=== PATIENT | female | born 1965 | race Hispanic/Latino ===

== ENCOUNTER → 2016-03-19 | Outpatient (CLI) | payer BC ==
--- NOTE | 2016-03-19 10:42 | REP ---
PELVIC ULTRASOUND: HISTORY: Ovarian cyst. Right lower quadrant mass. Comparison study December 24, 2015 showed a 2.2 cm right ovarian cyst and a 1.3 cm posterior pedunculated subserosal fibroid. FINDINGS: Transabdominal and transvaginal scanning are performed. Uterine dimensions are 8.1 x 4.4 x 6.0 cm. These dimensions are similar to the prior study. Endometrial echo is 0.9 cm thick and centrally placed today. There is a 0.9 x 0.7 x 1.0 cm polypoid area in the endometrium which may be an endometrial polyp. Uterine myometrium is somewhat heterogeneous. Left posterior pedunculated fibroid is again seen 1.5 cm in greatest diameter. There are nabothian cysts in the cervix. Normal ovaries are seen today. Right ovary dimensions of 3.1 x 1.2 x 1.9 cm. The left ovary measures 2.8 x 1.2 x 2.2 cm. Doppler flow is normal in both ovaries. Resistive indices are 0.67 and 0.42 on the right and left respectively. IMPRESSION: No ovarian cyst or mass is seen. Possible endometrial polyp. Small uterine fibroid. Signed by Corbin Cardona MD 03/19/2016 02:53 P
== END ==
LOC: M RAD 08:16
PROVIDERS: ATTEND Family Medicine
DX: D25.9 Leiomyoma of uterus, unspecified (principal); R19.01 Right upper quadrant abdominal swelling, mass and lump; N83.299 Other ovarian cyst, unspecified side

== ENCOUNTER → 2016-04-14 | Outpatient (CLI) | payer BC ==
[~2016-04-14] VITALS: Ht 165.1 cm; Wt 63.5 kg
[~2016-04-14] MED LIST: ACET500C PO; EVEN1000 PO; LIDOCAINE 2% INJ 100 MG/5 ML SDV (FOR ANES.) As Ordered ONE; NS 1,000 ML IV SCH; PROPOFOL 200 MG/20 ML VIAL As Ordered ONE; TYLE650T35 PO; VITA EX; VITA30004 PO; [UNRECOGNIZED DRUG - CODE] PO
--- NOTE | 2016-04-14 13:22 | ROOR ---
Patient Name: Minerva Nolasco Procedure Date: 04/14/2016 1:03 PM Date of : 1965 Age: 50 Room: [facility] Gender: Female Note Status: Finalized Procedure: Colonoscopy to Cecum Indications: Colon cancer screening in patient at increased risk: Colorectal cancer in father, Incidental - Abdominal pain in the right lower quadrant Providers: David Mondragon MD Referring MD: LUPE MORRIS MD Requesting Provider: Medicines: Monitored Anesthesia Care Complications: No immediate complications. Procedure: Pre-Anesthesia Assessment: - The heart rate, respiratory rate, oxygen saturations, blood pressure, adequacy of pulmonary ventilation, and response to care were monitored throughout the procedure. The Colonoscope was introduced through the anus and advanced to the cecum, identified by appendiceal orifice and ileocecal valve. The colonoscopy was performed without difficulty. The patient tolerated the procedure well. The quality of the bowel preparation was excellent. Findings: The perianal and digital rectal examinations were normal. Non-bleeding internal hemorrhoids were found during retroflexion. The hemorrhoids were small and Grade I (internal hemorrhoids that do not prolapse). No other significant abnormalities were identified in a careful examination of the remainder of the colon. The exam was otherwise without abnormality on direct and retroflexion views. Impression: - Non-bleeding internal hemorrhoids. - The examination was otherwise normal on direct and retroflexion views. - No specimens collected. - The exam was otherwise normal to the cecum. Recommendation: - Patient has a contact number available for emergencies. The signs and symptoms of potential delayed complications were discussed with the patient. Return to normal activities tomorrow. Written discharge instructions were provided to the patient. - High fiber diet. - Discharge patient to home. - Continue present medications. - Repeat colonoscopy in 5 years for screening purposes. - Return to referring physician. - The findings and recommendations were discussed with the patient's family. David Mondragon MD David Mondragon MD 04/14/2016 1:21:30 PM This report has been signed electronically. Number of Addenda: 0 Note Initiated On: 04/14/2016 1:03 PM Estimated Blood Loss: Estimated blood loss: none.
[2016-04-14 13:45] VITALS: BP 115/75
== END | disposition home or self-care (01) ==
LOC: M OPP 11:30
PROVIDERS: ATTEND Internal Medicine Gastroenterology
DX: Z12.11 Encounter for screening for malignant neoplasm of colon (principal); K64.0 First degree hemorrhoids; Z80.0 Family history of malignant neoplasm of digestive organs
CPT/HCPCS: 99156; G0105

== ENCOUNTER 2016-09-07 14:39 | Emergency (ER) | payer BC ==
[~2016-09-07] VITALS: Ht 167.6 cm; Wt 69.2 kg
[~2016-09-07 14:39] MED LIST changes: -LIDOCAINE 2% INJ 100 MG/5 ML SDV (FOR ANES.) As Ordered ONE; -NS 1,000 ML IV SCH; -PROPOFOL 200 MG/20 ML VIAL As Ordered ONE
[2016-09-07] MEDS ORDERED: NITRO10CA PO (16:45)
[2016-09-07] MEDS ORDERED: PYRI1TAB5 PO (16:49)
[2016-09-07 16:56] VITALS: BP 115/68
== END 2016-09-07 17:01 | disposition home or self-care (01) ==
LOC: M ED 14:39
DX: N30.00 Acute cystitis without hematuria (principal); Z79.899 Other long term (current) drug therapy

== ENCOUNTER → 2017-10-29 | Outpatient (CLI) | payer BC ==
[~2017-10-29] MED LIST changes: -ACET500C PO; -EVEN1000 PO; +GASTROGRAFIN SOLUTION 30ML (Q9963) As Ordered; +ISOVUE-370 76% 100ML VIAL (Q9967) As Ordered; -TYLE650T35 PO; -VITA EX; -VITA30004 PO; -[UNRECOGNIZED DRUG - CODE] PO
== END ==
LOC: M RAD 11:13
DX: R10.11 Right upper quadrant pain (principal); R10.13 Epigastric pain
CPT/HCPCS: Q9963

== ENCOUNTER → 2018-01-24 | Outpatient (REF) | payer BC ==
[2018-01-28 14:15] LABS: HPV HYBRID CAPTURE II Negative (Negative)
== END ==
LOC: M LAB REF 09:04
DX: Z12.4 Encounter for screening for malignant neoplasm of cervix (principal)
CPT/HCPCS: 88142

== ENCOUNTER → 2018-06-10 | Outpatient (CLI) | payer BC ==
[~2018-06-10] MED LIST changes: +ACET500C PO; +EVEN1000 PO; -GASTROGRAFIN SOLUTION 30ML (Q9963) As Ordered; -ISOVUE-370 76% 100ML VIAL (Q9967) As Ordered; +NITR-67 PO; +PYRI1TAB5 PO; +TYLE650T35 PO; +VITA EX; +VITA30004 PO; +[UNRECOGNIZED DRUG - CODE] PO
--- NOTE | 2018-06-10 15:19 | REP ---
Focused bilateral breast sonography: History: Bilateral augmentation implants. Check implant status. Findings: Heterogeneous fibroglandular background echotexture is seen. No suspicious breast tissue finding is seen on either side. The patient has bilateral silicone implants. Visualized implant margins are smooth bilaterally throughout. There is no sonographic evidence to suggest extracapsular or intracapsular implant rupture. Impression: BI-RADS category 2 benign findings. No abnormality is noted in either breast augmentation implant. No suspicious parenchymal abnormality is seen. Electronically Signed by Corbin Cardona MD 06/10/2018 04:22 P
== END ==
LOC: M RAD 13:08
PROVIDERS: ATTEND Plastic Surgery Surgery of the Hand
DX: Z98.82 Breast implant status (principal)

== ENCOUNTER → 2018-09-23 | Outpatient (CLI) | payer BC ==
--- NOTE | 2018-09-23 10:32 | REP ---
Clinical: fatigue Comparison: none Technique: PA and lateral. Findings: The mediastinum and cardiac silhouette are normal. The lung mercado are clear and without acute consolidation, effusion, or pneumothorax. The skeletal structures are intact and normal. Impression: 1. No acute cardiopulmonary process. Electronically Signed by Rolando Michelle MD 09/23/2018 10:23 A
--- NOTE | 2018-09-24 19:49 | ECGEPIP ---
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
== END ==
LOC: M LAB 09:52
PROVIDERS: ATTEND Family Medicine
DX: E03.9 Hypothyroidism, unspecified (principal); R53.83 Other fatigue

== ENCOUNTER → 2018-10-11 | Outpatient (CLI) | payer BC ==
[2018-10-11 08:02] LABS: HEMATOCRIT 41.9 % (36.0-47.0); HEMOGLOBIN 14.4 g/dl (12.0-15.5); MEAN CORPUSCULAR HEMOGLOBIN 31.1 pg (27.0-33.0); MEAN CORPUSCULAR HGB CONC 34.4 g/dl (32.0-36.5); MEAN CORPUSCULAR VOLUME 90.5 fl (80.0-96.0); PLATELET COUNT, AUTOMATED 229 10^3/uL (150-450); RED BLOOD COUNT 4.63 10^6/uL (4.00-5.40)
[2018-10-11 08:13] LABS: INR 1.16; PROTHROMBIN TIME 14.5 SECONDS (11.8-14.0)
[2018-10-11 08:17] LABS: HEMOGLOBIN A1c 5.9 %
[2018-10-11 08:34] LABS: ALBUMIN 3.9 GM/DL (3.2-5.2); ALT/SGPT 20 U/L (12-78); BILIRUBIN,TOTAL 0.3 MG/DL (0.2-1.0); BLOOD UREA NITROGEN 18 MG/DL (7-18); CALCIUM LEVEL 9.2 MG/DL (8.5-10.1); CARBON DIOXIDE LEVEL 30 MEQ/L (21-32); CHLORIDE LEVEL 106 MEQ/L (98-107); CHOLESTEROL LEVEL 202 MG/DL (<200); CHOLESTEROL RISK RATIO 3.206 (<5); CREATININE FOR GFR 0.86 MG/DL (0.55-1.30); GLOMERULAR FILTRATION RATE > 60.0 (>51); GLUCOSE, FASTING 93 MG/DL (70-100); HDL CHOLESTEROL 63 MG/DL (>40); LDL CHOLESTEROL 125 MG/DL (<100); NON-HDL-C 139 MG/DL; POTASSIUM SERUM 4.3 MEQ/L (3.5-5.1); SODIUM LEVEL 141 MEQ/L (136-145); TOTAL PROTEIN 6.9 GM/DL (6.4-8.2); TRIGLYCERIDES LEVEL 68 MG/DL (<150)
== END ==
LOC: M LAB 07:16
PROVIDERS: ATTEND Family Medicine
DX: Z01.818 Encounter for other preprocedural examination (principal); R00.2 Palpitations; E03.9 Hypothyroidism, unspecified

== ENCOUNTER → 2019-02-06 | Outpatient (CLI) | payer BC ==
--- NOTE | 2019-02-06 10:18 | REP ---
CHEST, TWO VIEWS: COMPARISON: 09/23/2018. There is no evidence of acute infiltrate. No pleural effusion is seen. The heart is normal in size. The mediastinal silhouette is unremarkable. The visualized osseous structures are intact. IMPRESSION: No acute pulmonary disease. Electronically Signed by Frank Perry MD 02/06/2019 04:20 P
--- NOTE | 2019-02-06 17:11 | ECGEPIP ---
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
== END ==
LOC: M EKG 08:34
PROVIDERS: ATTEND Family Medicine
DX: E03.9 Hypothyroidism, unspecified (principal); R53.83 Other fatigue; I10 Essential (primary) hypertension

== ENCOUNTER → 2019-02-08 | Outpatient (CLI) | payer BC ==
[~2019-02-08] MED LIST changes: +GASTROGRAFIN SOLUTION 30ML (Q9963) As Ordered ONE; +ISOVUE-370 76% 100ML VIAL (Q9967) As Ordered ONE
--- NOTE | 2019-02-08 10:55 | REP ---
CT ABDOMEN AND PELVIS WITH ORAL AND IV CONTRAST, CT ABDOMEN WITHOUT IV CONTRAST: CT abdomen performed without IV contrast. CT abdomen/pelvis performed with oral and IV contrast. Sagittal and coronal reconstruction images are performed. Contrast dose is 100 mL of Isovue-370. Comparison made with prior study of 10/29/2017. No infiltrate is seen in the visualized lung bases. The liver again demonstrates multiple cysts. The largest is in the left lobe measuring 1.8 cm in diameter. There is a 1.2 cm hemangioma inferiorly in the right lobe. Spleen is normal in size with no intrinsic abnormality. The adrenals and pancreas are normal. Right kidney appears normal. Left kidney demonstrates a 3 cm cyst in the mid aspect. There is no hydronephrosis bilaterally. There is no abdominal aortic aneurysm. There is no adenopathy. There is no free air or free fluid. No bowel wall thickening is seen. The patient has had a prior appendectomy. I see no pelvic mass. Uterus is deviated to the left of midline. Urinary bladder is mildly distended and grossly unremarkable. There are mild degenerative changes of the spine. IMPRESSION: Multiple liver cysts again noted. Hemangioma inferior right lobe of liver. Left renal cyst. No other evidence of mass or adenopathy. Electronically Signed by Frank Perry MD 02/08/2019 07:55 P
== END ==
LOC: M RAD 08:35
PROVIDERS: ATTEND Family Medicine
DX: K76.89 Other specified diseases of liver (principal); D18.03 Hemangioma of intra-abdominal structures; N28.1 Cyst of kidney, acquired
CPT/HCPCS: 74178; Q9963; Q9967

== ENCOUNTER → 2019-05-04 | Outpatient (CLI) | payer BC ==
[~2019-05-04] MED LIST changes: -GASTROGRAFIN SOLUTION 30ML (Q9963) As Ordered ONE; -ISOVUE-370 76% 100ML VIAL (Q9967) As Ordered ONE
[2019-05-04 08:25] LABS: HEMATOCRIT 39.9 % (36.0-47.0); HEMOGLOBIN 13.6 g/dl (12.0-15.5); MEAN CORPUSCULAR HEMOGLOBIN 30.4 pg (27.0-33.0); MEAN CORPUSCULAR HGB CONC 34.1 g/dl (32.0-36.5); MEAN CORPUSCULAR VOLUME 89.3 fl (80.0-96.0); PLATELET COUNT, AUTOMATED 201 10^3/uL (150-450); RED BLOOD COUNT 4.47 10^6/uL (4.00-5.40)
[2019-05-04 09:04] LABS: ALBUMIN 3.5 GM/DL (3.2-5.2); ALT/SGPT 16 U/L (12-78); BILIRUBIN,TOTAL 0.2 MG/DL (0.2-1.0); BLOOD UREA NITROGEN 14 MG/DL (7-18); CALCIUM LEVEL 8.6 MG/DL (8.5-10.1); CARBON DIOXIDE LEVEL 27 MEQ/L (21-32); CHLORIDE LEVEL 107 MEQ/L (98-107); CHOLESTEROL LEVEL 167 MG/DL (<200); CREATININE FOR GFR 0.78 MG/DL (0.55-1.30); GLOMERULAR FILTRATION RATE > 60.0 (>51); GLUCOSE, FASTING 86 MG/DL (70-100); HDL CHOLESTEROL 53 MG/DL (>40); LDL CHOLESTEROL 96 MG/DL (<100); NON-HDL-C 114 MG/DL; SODIUM LEVEL 140 MEQ/L (136-145); TOTAL PROTEIN 6.6 GM/DL (6.4-8.2); TRIGLYCERIDES LEVEL 92 MG/DL (<150)
[2019-05-04 10:58] LABS: TOTAL 25(OH) VITAMIN D 54.7 NG/ML (30.0-100.0)
--- NOTE | 2019-05-04 16:10 | REP ---
Now upper quadrant ultrasound: Comparison is 02/08/2019 CT of the abdomen and pelvis: The current ultrasound study is performed for right upper quadrant pain. There is a 3 mm polyp versus adherent noncalcified calculus along the dependent wall of the gallbladder. There is no gallbladder wall thickening or pericholecystic fluid. There is no intrahepatic or extrahepatic biliary duct dilatation. The common biliary duct measures 3.0 mm in diameter. There are multiple small hepatic cysts, similar to the comparison CT, measuring up to 1.4 cm. There is an hemangioma in the inferiorly in the right lobe of the liver measuring up to 1.4 cm, similar to the comparison CT. There is a another smaller hemangioma in the right lobe of the liver measuring up to 8 mm, not visible on the comparison CT. The visualized areas of the pancreas are unremarkable. The right kidney is normal size measuring 10.2 x 5.4 x 3.2 cm. There is no solid or cystic right renal mass. There is no hydronephrosis. There are no renal calculi. There is no right upper quadrant ascites. Impression: The 3 mm polyp versus adherent calculus in the gallbladder. There is no ultrasound evidence of acute cholecystitis. There is no biliary duct dilatation. There are small hepatic cysts. There are two small hepatic hemangiomas as described. The visualized areas of the pancreas are unremarkable. The right kidney is unremarkable. There is no right upper quadrant ascites. Electronically Signed by Frank Huerta MD 05/04/2019 04:01 P
== END ==
LOC: M RAD 07:37
PROVIDERS: ATTEND Family Medicine
DX: R10.11 Right upper quadrant pain (principal); K76.89 Other specified diseases of liver; D18.03 Hemangioma of intra-abdominal structures

== ENCOUNTER → 2019-07-18 | Outpatient (REF) | payer BC | LOC: M PLALAB 10:21 | PROVIDERS: ATTEND Obstetrics & Gynecology | DX: Z01.419 Encounter for gynecological examination (general) (routine) without abnormal findings (principal) | CPT/HCPCS: 87624; G0123 ==

== ENCOUNTER → 2019-07-21 | Outpatient (REF) | payer BC ==
[2019-07-21 11:44] LABS: CHOLESTEROL RISK RATIO 3.161 (<5); FREE T4 1.08 NG/DL (0.76-1.46); THYROID STIMULATING HORMONE 2.42 uIU/ML (0.358-3.740)
[2019-07-21 11:45] LABS: FOLLICLE STIMULATING HORMONE 98.7 mIU/mL; LUTEINIZING HORMONE 50.4 mIU/mL
== END ==
LOC: M PLALAB 08:26
PROVIDERS: ATTEND Obstetrics & Gynecology
DX: Z01.419 Encounter for gynecological examination (general) (routine) without abnormal findings (principal)

== ENCOUNTER → 2019-07-21 | Outpatient (CLI) | payer BC ==
--- NOTE | 2019-07-21 11:01 | REPMRS ---
Patient History The patient states she had a clinical breast exam in June 2019. Family history of breast cancer at age 50 in maternal cousin. 2 implants in both breasts, 2007, redone 09/2018. Took hormonal contraceptives for 2 months. Digital Woman Screen Mammo: July 21, 2019 - Exam #: [id number] Bilateral CC and MLO view(s) were taken. Technologist: Denia Kramer, Technologist Prior study comparison: February 24, 2018, bilateral digital woman screen mammo, performed at [facility]. January 25, 2017, bilateral digital woman screen mammo, performed at [facility]. January 22, 2016, bilateral digital woman screen mammo, performed at [facility]. FINDINGS: The breast tissue is extremely dense which could obscure a lesion on mammography. The Volpara volumetric breast density category is: D . The visualized implant margins are smooth. Breast parenchymal density pattern is essentially symmetric. No dominant mass, grouped microcalcification, or architectural distortion is evident on either side. 3-D tomosynthesis shows no additional findings. No significant changes when compared with prior studies. Assessment: BI-RADS/ACR category 2 mammogram. Benign Findings. Recommendation Routine screening mammogram of both breasts in 1 year (for women over age 40). This patient's Lifetime Breast Cancer RIsk is estimated at 8.2 %. This mammogram was interpreted with the aid of an FDA-approved computer-aided dectection system. Electronically Signed By: Mj Cardona MD 07/21/19 [id number]
== END ==
LOC: M WHC 08:38
PROVIDERS: ATTEND Obstetrics & Gynecology
DX: Z12.31 Encounter for screening mammogram for malignant neoplasm of breast (principal)

== ENCOUNTER → 2020-01-16 | Outpatient (CLI) | payer BC ==
[~2020-01-16] MED LIST changes: +ACET650T61 PO; -TYLE650T35 PO
[2020-01-16 07:33] LABS: HEMATOCRIT 40.6 % (36.0-47.0); HEMOGLOBIN 13.4 g/dl (12.0-15.5); MEAN CORPUSCULAR HEMOGLOBIN 29.8 pg (27.0-33.0); MEAN CORPUSCULAR VOLUME 90.4 fl (80.0-96.0); PLATELET COUNT, AUTOMATED 237 10^3/uL (150-450); RED BLOOD COUNT 4.49 10^6/uL (4.00-5.40); WHITE BLOOD COUNT 5.5 10^3/uL (4.0-10.0)
[2020-01-16 07:50] LABS: HEMOGLOBIN A1c 5.6 %
[2020-01-16 08:02] LABS: ALBUMIN 3.8 GM/DL (3.2-5.2); ALT/SGPT 19 U/L (12-78); BILIRUBIN,TOTAL 0.6 MG/DL (0.2-1.0); BLOOD UREA NITROGEN 14 MG/DL (7-18); CALCIUM LEVEL 9.1 MG/DL (8.5-10.1); CARBON DIOXIDE LEVEL 31 MEQ/L (21-32); CHLORIDE LEVEL 107 MEQ/L (98-107); CHOLESTEROL LEVEL 203 MG/DL (<200); CHOLESTEROL RISK RATIO 2.743 (<5); CREATININE FOR GFR 0.81 MG/DL (0.55-1.30); GLOMERULAR FILTRATION RATE > 60.0 (>51); GLUCOSE, FASTING 98 MG/DL (70-100); HDL CHOLESTEROL 74 MG/DL (>40); LDL CHOLESTEROL 119 MG/DL (<100); NON-HDL-C 129 MG/DL; POTASSIUM SERUM 4.3 MEQ/L (3.5-5.1); SODIUM LEVEL 142 MEQ/L (136-145); TRIGLYCERIDES LEVEL 51 MG/DL (<150)
--- NOTE | 2020-01-16 08:15 | REP ---
INDICATION: HTN, ANGINA COMPARISON: 02/06/2019 TECHNIQUE: PA and lateral. FINDINGS: The mediastinum and cardiac silhouette are normal. The lung mercado are clear and without acute consolidation, effusion, or pneumothorax. The skeletal structures are intact and normal. IMPRESSION: No acute cardiopulmonary process. <Electronically signed by Rolando Michelle > 01/16/20 0832
[2020-01-16 08:55] LABS: CHLAMYDIA DNA AMPLIFICATION NEGATIVE (NEGATIVE); GC DNA AMPLIFICATION NEGATIVE (NEGATIVE)
[2020-01-16 09:11] LABS: LUTEINIZING HORMONE 43.6 mIU/mL
[2020-01-16 09:12] LABS: ESTRADIOL < 19.0 PG/ML
[2020-01-16 09:13] LABS: FOLLICLE STIMULATING HORMONE 112.9 mIU/mL
--- NOTE | 2020-01-16 09:19 | REP ---
INDICATION: PAIN, R/O GALLSTONES BLOOD WORK/EKG 1ST, US 2ND, XR 3RD COMPARISON: None. TECHNIQUE: Real time lemons scale ultrasound examination using curved array transducer. FINDINGS: Liver is normal in contour, size, and echogenicity and demonstrates multiple scattered simple and complex hepatic cysts measuring up to approximately 2.1 cm in the medial left lobe which are confirmed by prior CT of the abdomen dated 02/08/2019. No significant focal hepatic lesion identified. Pancreas is incompletely evaluated due to interposed bowel gas. The gallbladder is essentially normal and without gallstones, wall thickening, or pericholecystic fluid. A small 3mm benign appearing polyp along the posterior wall is noted. No biliary ductal dilatation is appreciated and the common bile duct measures 6.5 mm diameter. Right kidney is normal in reniform shape without hydronephrosis and measures 10.8 x 5.0 x 4.2 cm. No ascites in the visualized right upper quadrant. IMPRESSION: 1. Simple and complex hepatic cysts essentially unchanged when compared with CT dated 02/08/2019. 2. 3 mm benign appearing gallbladder polyp. <Electronically signed by Rolando Michelle > 01/16/20 0916
[2020-01-16 09:52] LABS: HIV 1&2 SCREEN CENTAUR NEGATIVE (NEGATIVE)
--- NOTE | 2020-01-17 19:23 | ECGEPIP ---
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
== END ==
LOC: M RAD 06:39
PROVIDERS: ATTEND Family Medicine
DX: I10 Essential (primary) hypertension (principal); R10.11 Right upper quadrant pain; I20.9 Angina pectoris, unspecified

== ENCOUNTER → 2020-01-22 | Outpatient (REF) | payer BC ==
[2020-01-22 17:46] LABS: APPEARANCE, URINE CLOUDY (CLEAR); BACTERIA, URINE AUTO NEGATIVE (NEGATIVE); BILIRUBIN, URINE AUTO NEGATIVE (NEGATIVE); BLOOD, URINE BLOOD 3+ (NEGATIVE); COLOR, URINE AMBER (YELLOW); GLUCOSE, URINE (UA) AUTO NEGATIVE (NEGATIVE); KETONE, URINE AUTO NEGATIVE (NEGATIVE); LEUKOCYTE ESTERASE, URINE AUTO 1+ (NEGATIVE); NITRITE, URINE AUTO POSITIVE (NEGATIVE); PROTEIN, URINE AUTO 2+ mg/dL (NEGATIVE); RBC, URINE AUTO TNTC /HPF (0-3); RENAL EPITHELIAL CELLS 2 /HPF; SQUAMOUS EPITHELIAL CELL UR AU 0 /HPF (0-6); WBC, URINE AUTO TNTC /HPF (0-3)
== END ==
LOC: M LAB REF 16:26
PROVIDERS: ATTEND Physician Assistant Medical
DX: N39.0 Urinary tract infection, site not specified (principal)

== ENCOUNTER → 2020-07-25 | Outpatient (REF) | payer BC | LOC: M SFHCWAGY 09:58 | PROVIDERS: ATTEND Obstetrics & Gynecology | DX: Z12.4 Encounter for screening for malignant neoplasm of cervix (principal); Z77.9 Other contact with and (suspected) exposures hazardous to health | CPT/HCPCS: 87624; G0123 ==

== ENCOUNTER → 2020-08-14 | Outpatient (CLI) | payer BC ==
--- NOTE | 2020-08-14 14:39 | REPMRS ---
Patient History The patient states she has not had a clinical breast exam in over a year. Patient is postmenopausal. Family history of breast cancer at age 50 in maternal cousin. Implants in both breasts, 2019. Explants from both breasts, 2019. Reductions of both breasts, 2019. Implants in both breasts, 2008. Pre-pectoral silicone gel implants. Took hormonal contraceptives for 2 months. Patient states no breast complaints today. Patient has signed MRS History Sheet. Digital Woman Screen Mammo: August 14, 2020 - Exam #: [id number] Bilateral CC and MLO view(s) were taken. Technologist: Allison Barrett, Technologist Prior study comparison: July 21, 2019, bilateral digital woman screen mammo performed at [facility]. January 22, 2016, bilateral digital woman screen mammo, performed at [facility]. FINDINGS: There are scattered fibroglandular densities. The visualized implant margins are smooth. Breast parenchymal density pattern is essentially symmetric. No dominant mass, grouped microcalcification, or architectural distortion is evident on either side. 3-D tomosynthesis shows no additional findings. No significant changes when compared with prior studies. Assessment: BI-RADS/ACR category 2 mammogram. Benign Findings. Recommendation Routine screening mammogram of both breasts in 1 year (for women over age 40). This patient's [facility] Lifetime Breast Cancer RIsk is estimated at 8.8 %. This mammogram was interpreted with the aid of an FDA-approved computer-aided dectection system. Electronically Signed By: Mj Cardona MD 08/14/20 [id number]
== END ==
LOC: M WHC 13:32
PROVIDERS: ATTEND Obstetrics & Gynecology
DX: Z12.31 Encounter for screening mammogram for malignant neoplasm of breast (principal); Z80.0 Family history of malignant neoplasm of digestive organs; Z98.82 Breast implant status

== ENCOUNTER → 2020-09-24 | Outpatient (CLI) | payer BC | LOC: M RAD 07:23 | PROVIDERS: ATTEND Family Medicine | DX: K80.20 Calculus of gallbladder without cholecystitis without obstruction (principal); K76.89 Other specified diseases of liver; D18.03 Hemangioma of intra-abdominal structures; K83.8 Other specified diseases of biliary tract ==

== ENCOUNTER → 2020-11-15 | Outpatient (CLI) | payer BC ==
--- NOTE | 2020-11-15 10:11 | REP ---
INDICATION: RUQ PAIN. COMPARISON: None TECHNIQUE/RADIOTRACER AND DOSE: FOLLOWING THE INTRAVENOUS ADMINISTRATION OF 5.4 MCI TECHNETIUM 99 M-MEBROFENIN, MULTIPLE IMAGES OF THE RIGHT UPPER QUADRANT ARE PERFORMED FOR 60 MINUTES. NEXT 8 OZ OF ENSURE ENLIVE IS INGESTED AND FURTHER IMAGING IS PERFORMED FOR 65 MINUTES. FINDINGS: THE GALLBLADDER IS VISUALIZED AT 35 MINUTES POST INJECTION. THERE IS BILIARY TO BOWEL TRANSIT AT 15MINUTES POST INJECTION. THERE IS NO SCINTIGRAPHIC EVIDENCE OF CHOLECYSTITIS. GALLBLADDER EJECTION FRACTION IS CALCULATED TO BE 71% WHICH IS NORMAL. IMPRESSION: NORMAL GALLBLADDER EJECTION FRACTION. <Electronically signed by Frank Perry > 11/15/20 1007
== END ==
LOC: M RAD 07:36
PROVIDERS: ATTEND Surgery
DX: R10.11 Right upper quadrant pain (principal)
CPT/HCPCS: 78227; A9537

== ENCOUNTER → 2021-03-27 | Outpatient (CLI) | payer BC ==
[~2021-03-27] MED LIST changes: +E-Z-PAQUE 96% w/w SUSP 176GM BTL As Ordered ONE
== END ==
LOC: M RAD 07:17
PROVIDERS: ATTEND Student in an Organized Health Care Education/Training Program
DX: R10.9 Unspecified abdominal pain (principal)

== ENCOUNTER → 2021-11-26 | Outpatient (CLI) | payer BC ==
[~2021-11-26] MED LIST changes: -E-Z-PAQUE 96% w/w SUSP 176GM BTL As Ordered ONE
== END ==
LOC: M WHC 06:47
PROVIDERS: ATTEND Nurse Practitioner Adult Health
DX: M85.851 Other specified disorders of bone density and structure, right thigh (principal); M85.852 Other specified disorders of bone density and structure, left thigh

== ENCOUNTER → 2021-11-26 | Outpatient (CLI) | payer BC | LOC: M WHC 06:44 | PROVIDERS: ATTEND Obstetrics & Gynecology | DX: Z12.31 Encounter for screening mammogram for malignant neoplasm of breast (principal) ==

== ENCOUNTER → 2022-01-08 | Outpatient (CLI) | payer BC | LOC: M RAD 14:37 | PROVIDERS: ATTEND Family Medicine | DX: D64.9 Anemia, unspecified (principal); R53.83 Other fatigue; E03.9 Hypothyroidism, unspecified ==

== ENCOUNTER → 2022-06-11 | Outpatient (CLI) | payer BC ==
[~2022-06-11] MED LIST changes: +ISOVUE-370 76% 100ML VIAL As Ordered ONE
== END ==
LOC: M RAD 07:50
PROVIDERS: ATTEND Family Medicine
DX: R51.9 Headache, unspecified (principal); H53.2 Diplopia
CPT/HCPCS: 70470; Q9967

== ENCOUNTER → 2022-07-29 | Outpatient (CLI) | payer BC ==
[~2022-07-29] MED LIST changes: -ISOVUE-370 76% 100ML VIAL As Ordered ONE
== END ==
LOC: M RAD 07:28
PROVIDERS: ATTEND Internal Medicine Gastroenterology
DX: R10.11 Right upper quadrant pain (principal); R10.13 Epigastric pain; K80.50 Calculus of bile duct without cholangitis or cholecystitis without obstruction; B96.81 Helicobacter pylori [H. pylori] as the cause of diseases classified elsewhere; K76.89 Other specified diseases of liver

== ENCOUNTER → 2023-06-10 | Outpatient (CLI) | payer BC | LOC: M RAD 07:41 | PROVIDERS: ATTEND Family Medicine | DX: D64.9 Anemia, unspecified (principal); R53.83 Other fatigue; E03.9 Hypothyroidism, unspecified ==

== ENCOUNTER → 2023-06-21 | Outpatient (CLI) | payer BC ==
[2023-06-21 06:39] LABS: HEMATOCRIT 40.1 % (36.0-47.0); HEMOGLOBIN 13.6 g/dl (12.0-15.5); MEAN CORPUSCULAR HEMOGLOBIN 30.4 pg (27.0-33.0); MEAN CORPUSCULAR HGB CONC 33.9 g/dl (32.0-36.5); MEAN CORPUSCULAR VOLUME 89.7 fl (80.0-96.0); PLATELET COUNT, AUTOMATED 261 10^3/uL (150-450); RED BLOOD COUNT 4.47 10^6/uL (4.00-5.40); WHITE BLOOD COUNT 6.2 10^3/uL (4.0-10.0)
[2023-06-21 07:07] LABS: ALBUMIN 3.7 G/DL (3.2-5.2); ALKALINE PHOSPHATASE 57 U/L (46-116); ALT/SGPT 15 U/L (7.0-40); AST/SGOT 14 U/L (<34); BILIRUBIN,TOTAL 0.6 MG/DL (0.3-1.2); BLOOD UREA NITROGEN 13 MG/DL (9-23); CALCIUM LEVEL 8.6 MG/DL (8.5-10.1); CARBON DIOXIDE LEVEL 29 MMOL/L (20-31); CHLORIDE LEVEL 108 MMOL/L (98-107); CHOLESTEROL LEVEL 200 MG/DL (<200); CHOLESTEROL RISK RATIO 3.27 (<5); CREATININE FOR GFR 0.72 MG/DL (0.55-1.30); GLOMERULAR FILTRATION RATE > 60.0 (>51); GLUCOSE, FASTING 100 MG/DL (60-100); LDL CHOLESTEROL 126.8 MG/DL (<100); POTASSIUM SERUM 4.2 MMOL/L (3.5-5.1); SODIUM LEVEL 142 MMOL/L (136-145); TOTAL PROTEIN 6.1 G/DL (5.7-8.2); TRIGLYCERIDES LEVEL 61 MG/DL (<150)
[2023-06-21 07:08] LABS: ESTRADIOL < 19.0 PG/ML; TOTAL 25(OH) VITAMIN D 32.5 NG/ML (20.0-100.0)
[2023-06-21 07:09] LABS: FOLLICLE STIMULATING HORMONE 105.3 mIU/ML; LUTEINIZING HORMONE 42.4 mIU/ML; THYROID STIMULATING HORMONE 2.883 uIU/ML (0.55-4.78)
== END ==
LOC: M EKG 06:09
PROVIDERS: ATTEND Family Medicine
DX: D64.9 Anemia, unspecified (principal); R53.83 Other fatigue; E03.9 Hypothyroidism, unspecified; I45.19 Other right bundle-branch block

== ENCOUNTER → 2023-11-27 | Outpatient (CLI) | payer BC | LOC: M RAD 08:16 | PROVIDERS: ATTEND Family Medicine | DX: M54.30 Sciatica, unspecified side (principal); M47.817 Spondylosis without myelopathy or radiculopathy, lumbosacral region; M41.9 Scoliosis, unspecified; M17.12 Unilateral primary osteoarthritis, left knee ==

== ENCOUNTER → 2023-12-28 | Outpatient (CLI) | payer BC | LOC: M WHC 15:42 | PROVIDERS: ATTEND Nurse Practitioner Adult Health | DX: Z12.31 Encounter for screening mammogram for malignant neoplasm of breast (principal); R92.313 Mammographic fatty tissue density, bilateral breasts; Z98.82 Breast implant status ==

== ENCOUNTER → 2024-01-19 | Outpatient (CLI) | payer BC | LOC: M RAD 09:58 | PROVIDERS: ATTEND Family Medicine | DX: R10.11 Right upper quadrant pain (principal); K76.89 Other specified diseases of liver; K82.4 Cholesterolosis of gallbladder ==

== ENCOUNTER → 2024-10-17 | Outpatient (CLI) | payer BC | LOC: M WHC 09:55 | DX: N63.10 Unspecified lump in the right breast, unspecified quadrant (principal); Z98.82 Breast implant status; R92.323 Mammographic fibroglandular density, bilateral breasts | CPT/HCPCS: 76642; 77066; G0279 ==